=== PATIENT | female | born 1940 | race Caucasian/White ===

== ENCOUNTER 2022-03-28 01:13 | Inpatient (IN) ==
[2022-03-28] MEDS ORDERED: Naloxone 0.4 MG/ML INJ IVP PRN (08:59)
[2022-03-28] MEDS ORDERED: Artificial Tears SOLN 15 ML BOTTLE BOTH EYES PRN ×2 (08:59→09:41)
[2022-03-28 09:35] LABS: ABG Base Excess -19 mEq/L (-2 to 3); ABG HCO3 10 mEq/L (21-27); ABG Oxygen Saturation 100 % (95-98); ABG PCO2 34 mmHg (35-45); ABG PH 7.06 pH Units (7.32-7.45); ABG PO2 456 mmHg (85-104); ABG TCO2 11 mEq/L (20-26); Blood Gas Modality ASSIST CONTROL; Blood Gas VT 480 cc
[2022-03-28 09:47] LABS: Red Blood Count 2.37 M/mcL (3.82-4.97); Red Cell Distribution Width 19.1 % (11.5-14.5)
[2022-03-28 09:48] LABS: Mean Corpuscular HGB Conc 27.5 g/dL (31.6-35.5); Mean Corpuscular Hemoglobin 23.2 pg (28.0-33.3); Mean Corpuscular Volume 84.4 fL (83.0-100.0); Mean Platelet Volume 9.8 fL (9.4-12.4); Nucleated Red Blood Cells 7.2 /100 WBC (0); Platelet Count 337 K/mcL (140-400); White Blood Count 27.2 K/mcL (4.3-11.1)
[2022-03-28 09:51] LABS: Hemoglobin 5.5 g/dL (11.5-15.4)
[2022-03-28] MEDS: Sodium Bicarbonate 150 MEQ in D5% in Water 1,000 ML IVC SCH ×2 (09:55→16:58)
[2022-03-28 09:57] LABS: Prothrombin Time 55.2 Seconds (9.4-12.1)
[2022-03-28 10:06] LABS: Anisocytosis 2+ (Not Present); Hypochromasia Present (Not Present); Poikilocytosis 2+ (Not Present); Polychromasia 1+ (Not Present)
[2022-03-28 10:07] LABS: Acanthocytes 1+ (Not Present); Platelet Estimate Normal (Normal)
[2022-03-28] MEDS ORDERED: HUM PROTHROMBIN CPLX IVPB ONE (10:15)
[2022-03-28] MEDS ORDERED: [UNRECOGNIZED DRUG - OTHER] IVPB ONE (10:15)
[2022-03-28] MEDS ORDERED: WATER FOR INJ IVPB ONE (10:15)
[2022-03-28] MEDS: Norepinephrine 4 MG/254 ML IV.SOLN IVC SCH ×3 (10:21→19:58)
[2022-03-28 10:30] LABS: Albumin 1.9 g/dL (3.5-5.7); Albumin/Globulin Ratio 1.4 (1.1-2.2); Bilirubin,Direct 0.6 mg/dL (0.0-0.2); Bilirubin,Indirect 0.5 mg/dL (0.0-1.0); Bilirubin,Total 1.1 mg/dL (0.3-1.0); Calcium 7.2 mg/dL (8.6-10.3); Globulin 1.4 g/dL (2.4-3.5); Phosphorous 5.7 mg/dL (2.7-4.5); Potassium 4.6 mEq/L (3.5-5.1); Total Protein 3.3 g/dL (6.4-8.9)
[2022-03-28 10:43] LABS: Neutrophils # 23.9 K/mcL (1.6-8.9)
[2022-03-28 10:44] LABS: Lymphocytes # 1.6 K/mcL (0.6-4.6)
[2022-03-28] MEDS: FentaNYL (PF) 1,000 MCG/100 ML IV.SOLN IVC SCH (11:02)
[2022-03-28] MEDS: Pantoprazole 40 MG VIAL IVP SCH (11:04)
[2022-03-28] MEDS: Chlorhexidine Rinse 15 ML MOUTHWASH MM SCH ×2 (11:04→21:10)
[2022-03-28 11:41] LABS: ABG Base Excess -12 mEq/L (-2 to 3); ABG HCO3 14 mEq/L (21-27); ABG Oxygen Saturation 100 % (95-98); ABG PCO2 34 mmHg (35-45); ABG PH 7.23 pH Units (7.32-7.45); ABG PO2 451 mmHg (85-104); ABG TCO2 15 mEq/L (20-26); Blood Gas Modality ASSIST CONTROL; Blood Gas VT 480 cc
[2022-03-28] MEDS ORDERED: Artificial Tears SOLN 15 ML BOTTLE BOTH EYES SCH (12:00)
[2022-03-28] MEDS: MetroNIDAZOLE 500 MG/100 ML 500 MG/100 ML BAG IVPB SCH ×3 (12:05→23:11)
[2022-03-28] MEDS: Artificial Tears SOLN 15 ML BOTTLE BOTH EYES SCH ×4 (12:05→23:08)
[2022-03-28 12:57] LABS: Hematocrit 24.9 % (35.3-44.9)
[2022-03-28 13:03] LABS: Hemoglobin 7.1 g/dL (11.5-15.4)
[2022-03-28] MEDS ORDERED: 0.9 % Sodium Chloride 250 ML ONE (13:23)
[2022-03-28] MEDS ORDERED: *HR* Dextrose 50 % in Water (Syg) 50 ML SYRINGE IVP PRN (14:15)
[2022-03-28] MEDS ORDERED: Dextrose Gel 15 GM/37.5 ML TUBE PO PRN ×2 (14:15)
[2022-03-28] MEDS ORDERED: D5% in Water 1,000 ML IVC PRN (14:15)
[2022-03-28] MEDS ORDERED: Albumin 25% 25gram/100mL 25 GM/100 ML IV.SOLN IVPB ONE (14:51)
[2022-03-28] MEDS: Vasopressin 40 UNIT in D5% in Water 100 ML IVC SCH (15:10)
[2022-03-28 16:00] LABS: Albumin 2.4 g/dL (3.5-5.7); Albumin/Globulin Ratio 1.3 (1.1-2.2); Bilirubin,Total 1.7 mg/dL (0.3-1.0); Calcium 7.8 mg/dL (8.6-10.3); Globulin 1.9 g/dL (2.4-3.5); Potassium 4.6 mEq/L (3.5-5.1); Total Protein 4.3 g/dL (6.4-8.9)
[2022-03-28] MEDS: Cefepime HCl 2,000 MG in 0.9 % Sodium Chloride 10 ML IVP SCH (16:59)
[2022-03-28] MEDS: Insulin LISPRO 300 UNITS/3 ML VIAL SUBQ SCH ×2 (17:07→23:08)
[2022-03-28 18:06] LABS: Hematocrit 27.9 % (35.3-44.9); Hemoglobin 8.2 g/dL (11.5-15.4)
[2022-03-28 19:03] LABS: INR 2.9; Prothrombin Time 31.7 Seconds (9.4-12.1)
[2022-03-28] MEDS ORDERED: Chlorhexidine Rinse 15 ML MOUTHWASH MM SCH (21:00)
[2022-03-29 01:35] LABS: Hematocrit 28.8 % (35.3-44.9); Hemoglobin 8.4 g/dL (11.5-15.4)
[2022-03-29] MEDS: Sodium Bicarbonate 150 MEQ in D5% in Water 1,000 ML IVC SCH ×3 (01:39→16:26)
[2022-03-29] MEDS: FentaNYL (PF) 1,000 MCG/100 ML IV.SOLN IVC SCH ×4 (01:40→21:34)
[2022-03-29 04:06] LABS: ABG Base Excess -7 mEq/L (-2 to 3); ABG HCO3 19 mEq/L (21-27); ABG Oxygen Saturation 93 % (95-98); ABG PCO2 39 mmHg (35-45); ABG PH 7.29 pH Units (7.32-7.45); ABG PO2 76 mmHg (85-104); ABG TCO2 20 mEq/L (20-26); Blood Gas VT 480 cc
[2022-03-29] MEDS: Artificial Tears SOLN 15 ML BOTTLE BOTH EYES SCH ×6 (05:01→23:24)
[2022-03-29] MEDS: Midazolam HCl 50 MG/50 ML IV.SOLN IVC SCH ×2 (05:01→09:05)
[2022-03-29 05:02] LABS: Hematocrit 26.8 % (35.3-44.9); Hemoglobin 8.2 g/dL (11.5-15.4); Mean Corpuscular HGB Conc 30.6 g/dL (31.6-35.5); Mean Corpuscular Hemoglobin 25.1 pg (28.0-33.3); Mean Platelet Volume 10.2 fL (9.4-12.4); Nucleated Red Blood Cells 5.1 /100 WBC (0); Platelet Count 350 K/mcL (140-400); Red Blood Count 3.27 M/mcL (3.82-4.97); Red Cell Distribution Width 19.3 % (11.5-14.5)
[2022-03-29 05:15] LABS: White Blood Count 31.7 K/mcL (4.3-11.1)
[2022-03-29] MEDS ORDERED: *HR* Heparin 5,000 UNIT/ML VIAL IVP ONE (05:34)
[2022-03-29] MEDS ORDERED: *HR* Heparin 5,000 UNIT/ML VIAL IVP PRN ×2 (05:34)
[2022-03-29] MEDS: Norepinephrine 4 MG/254 ML IV.SOLN IVC SCH (05:34)
[2022-03-29] MEDS: Cefepime HCl 2,000 MG in 0.9 % Sodium Chloride 10 ML IVP SCH (05:35)
[2022-03-29] MEDS: MetroNIDAZOLE 500 MG/100 ML 500 MG/100 ML BAG IVPB SCH ×4 (05:36→23:21)
[2022-03-29] MEDS: Insulin LISPRO 300 UNITS/3 ML VIAL SUBQ SCH ×4 (05:37→23:23)
[2022-03-29 05:43] LABS: Acanthocytes 1+ (Not Present); Anisocytosis 2+ (Not Present); Microcytosis Present (Not Present); Platelet Estimate Normal (Normal); Toxic Granulation Present (Not Present)
[2022-03-29 05:44] LABS: Lymphocytes # 2.5 K/mcL (0.6-4.6); Monocytes # 1.3 K/mcL (0.0-1.3); Neutrophils # 27.9 K/mcL (1.6-8.9); Poikilocytosis 1+ (Not Present)
[2022-03-29] MEDS ORDERED: Heparin 25,000UNIT/250ML 1/2NS 25,000 UNIT/250 ML IV.SOLN IVC SCH ×2 (05:45→06:00)
[2022-03-29 05:58] LABS: Alanine Aminotransferase 1408 Units/L (7-52); Albumin 2.6 g/dL (3.5-5.7); Albumin/Globulin Ratio 1.7 (1.1-2.2); Alkaline Phosphatase 130 Units/L (34-104); Aspartate Amino Transferase > 3000 Units/L (13-39); BUN/Creatinine Ratio 27 (6-26); Bilirubin,Total 2.3 mg/dL (0.3-1.0); Blood Urea Nitrogen 44 mg/dL (8-23); Calcium 7.7 mg/dL (8.6-10.3); Carbon Dioxide 18 mEq/L (23-29); Chloride 100 mEq/L (98-107); Globulin 1.5 g/dL (2.4-3.5); Glucose 395 mg/dL (70-105); Osmolality,Calculated 318 (280-300); Potassium 3.8 mEq/L (3.5-5.1); Sodium 140 mEq/L (136-145); Total Protein 4.1 g/dL (6.4-8.9)
[2022-03-29 06:27] LABS: Heparin anti-factor XA UFH 0.71 IU/mL (0.30-0.70)
[2022-03-29 06:28] LABS: INR 4.3
[2022-03-29 06:30] LABS: Activated Partial Thrombo Time 36.7 Seconds (26.0-36.0)
[2022-03-29 06:32] LABS: Prothrombin Time 47.3 Seconds (9.4-12.1)
[2022-03-29 06:57] LABS: Troponin I 6.88 ng/mL (< 0.04)
[2022-03-29] MEDS ORDERED: D5 IVC ONE ×3 (08:01→13:00)
[2022-03-29] MEDS ORDERED: ACETYLCYSTEINE IVC ONE ×3 (08:01→13:00)
[2022-03-29] MEDS ORDERED: WATER IVC ONE ×3 (08:01→13:00)
[2022-03-29 08:47] LABS: Magnesium 1.9 mg/dL (1.6-2.6); Phosphorous 4.4 mg/dL (2.7-4.5)
[2022-03-29] MEDS: Pantoprazole 40 MG VIAL IVP SCH (08:59)
[2022-03-29] MEDS: Chlorhexidine Rinse 15 ML MOUTHWASH MM SCH ×2 (08:59→21:34)
[2022-03-29] MEDS: Hydrocortisone Sodium Succ 100 MG/2 ML VIAL IVP SCH ×3 (09:04→23:21)
[2022-03-29] MEDS ORDERED: D10% in Water 500 ML IVC PRN (10:07)
[2022-03-29] MEDS: Vasopressin 40 UNIT in D5% in Water 100 ML IVC SCH (10:32)
[2022-03-29] MEDS ORDERED: Albuterol 2.5 MG/3 ML NEBULIZER IH PRN (10:43)
[2022-03-29] MEDS ORDERED: Amiodarone Premix 150 MG/100 ML BAG IVPB ONE (12:59)
[2022-03-29] MEDS ORDERED: Amiodarone 450 MG in 0.9 % Sodium Chloride Excel Bg 241 ML IVC ONE (13:04)
[2022-03-29 13:17] LABS: Hematocrit 26.2 % (35.3-44.9)
[2022-03-29 13:19] LABS: Hemoglobin 7.9 g/dL (11.5-15.4); Mean Corpuscular HGB Conc 30.2 g/dL (31.6-35.5); Mean Corpuscular Hemoglobin 24.5 pg (28.0-33.3); Mean Corpuscular Volume 81.1 fL (83.0-100.0); Nucleated Red Blood Cells 6.9 /100 WBC (0); Platelet Count 279 K/mcL (140-400); Red Blood Count 3.23 M/mcL (3.82-4.97); Red Cell Distribution Width 19.6 % (11.5-14.5)
[2022-03-29] MEDS ORDERED: Amiodarone Premix 360 MG/200 ML BAG IVC ONE (13:19)
[2022-03-29 13:22] LABS: White Blood Count 34.2 K/mcL (4.3-11.1)
[2022-03-29 13:35] LABS: Anisocytosis 1+ (Not Present); Lymphocytes # 1.4 K/mcL (0.6-4.6); Monocytes # 0.7 K/mcL (0.0-1.3); Neutrophils # 32.2 K/mcL (1.6-8.9); Pappenheimer Bodies 1+ (Not Present); Platelet Estimate Normal (Normal)
[2022-03-29 13:36] LABS: Polychromasia 1+ (Not Present)
[2022-03-29 13:52] LABS: Alanine Aminotransferase 1350 Units/L (7-52); Albumin 2.2 g/dL (3.5-5.7); Albumin/Globulin Ratio 1.7 (1.1-2.2); Alkaline Phosphatase 135 Units/L (34-104); Aspartate Amino Transferase > 3000 Units/L (13-39); BUN/Creatinine Ratio 26 (6-26); Bilirubin,Total 2.5 mg/dL (0.3-1.0); Blood Urea Nitrogen 47 mg/dL (8-23); Calcium 7.1 mg/dL (8.6-10.3); Carbon Dioxide 20 mEq/L (23-29); Chloride 95 mEq/L (98-107); Globulin 1.3 g/dL (2.4-3.5); Glucose 486 mg/dL (70-105); Magnesium 1.8 mg/dL (1.6-2.6); Osmolality,Calculated 320 (280-300); Phosphorous 4.1 mg/dL (2.7-4.5); Potassium 3.6 mEq/L (3.5-5.1); Sodium 138 mEq/L (136-145); Total Protein 3.5 g/dL (6.4-8.9)
[2022-03-29] MEDS: Ipratropium/Albuterol Neb 3 ML IH SCH ×2 (15:12→19:52)
[2022-03-29] MEDS ORDERED: Clinimix E 5%-15% SOLUTION 2,000 ML with MVI, adult with vitamin K 10 ML IVC SCH (17:00)
[2022-03-29] MEDS: Cefepime HCl 1,000 MG in 0.9 % Sodium Chloride 10 ML IVP SCH (17:07)
[2022-03-29] MEDS ORDERED: Insulin LISPRO 300 UNITS/3 ML VIAL SUBQ SCH (17:27)
[2022-03-29] MEDS: Amiodarone Premix 360 MG/200 ML BAG IVC SCH (19:38)
[2022-03-29] MEDS ORDERED: Insulin DETEMIR 100 UNIT/ML X5UNITS SUBQ SCH ×2 (21:00→22:45)
[2022-03-30] MEDS: Norepinephrine 4 MG/254 ML IV.SOLN IVC SCH (00:14)
[2022-03-30] MEDS: Sodium Bicarbonate 150 MEQ in D5% in Water 1,000 ML IVC SCH (00:15)
[2022-03-30] MEDS: Phenylephrine 20 MG in 0.9 % Sodium Chloride 250 ML IVC SCH ×2 (01:44→09:21)
[2022-03-30] MEDS: Artificial Tears SOLN 15 ML BOTTLE BOTH EYES SCH ×4 (04:09→16:07)
[2022-03-30] MEDS: FentaNYL (PF) 1,000 MCG/100 ML IV.SOLN IVC SCH ×3 (04:09→14:11)
[2022-03-30] MEDS: Ipratropium/Albuterol Neb 3 ML IH SCH ×3 (04:13→15:58)
[2022-03-30] MEDS ORDERED: Insulin DETEMIR 100 UNIT/ML X5UNITS SUBQ ONE (04:24)
[2022-03-30] MEDS: Insulin LISPRO 300 UNITS/3 ML VIAL SUBQ SCH (04:43)
[2022-03-30 05:02] LABS: Nucleated Red Blood Cells 7.4 /100 WBC (0)
[2022-03-30 05:03] LABS: Hematocrit 26.6 % (35.3-44.9); Hemoglobin 7.3 g/dL (11.5-15.4); Mean Corpuscular HGB Conc 27.4 g/dL (31.6-35.5); Mean Corpuscular Hemoglobin 24.3 pg (28.0-33.3); Mean Corpuscular Volume 88.7 fL (83.0-100.0); Platelet Count 228 K/mcL (140-400); Red Cell Distribution Width 21.4 % (11.5-14.5)
[2022-03-30 05:07] LABS: White Blood Count 38.9 K/mcL (4.3-11.1)
[2022-03-30 05:15] LABS: INR 7.4; Prothrombin Time 81.3 Seconds (9.4-12.1)
[2022-03-30 05:20] LABS: ABG Base Excess -16 mEq/L (-2 to 3); ABG HCO3 12 mEq/L (21-27); ABG Oxygen Saturation 97 % (95-98); ABG PCO2 35 mmHg (35-45); ABG PH 7.14 pH Units (7.32-7.45); ABG PO2 123 mmHg (85-104); ABG TCO2 13 mEq/L (20-26); Blood Gas VT 480 cc
[2022-03-30 05:25] LABS: Albumin 1.9 g/dL (3.5-5.7); Albumin/Globulin Ratio 1.7 (1.1-2.2); Bilirubin,Total 1.9 mg/dL (0.3-1.0); Calcium 6.9 mg/dL (8.6-10.3); Globulin 1.1 g/dL (2.4-3.5); Magnesium 1.9 mg/dL (1.6-2.6); Phosphorous 6.2 mg/dL (2.7-4.5); Potassium 3.7 mEq/L (3.5-5.1)
[2022-03-30] MEDS ORDERED: Insulin Regular, Human 100 UNIT/ML IV ONE (05:25)
[2022-03-30] MEDS ORDERED: Insulin Regular, Human 100 UNIT/ML IV PRN ×2 (05:25)
[2022-03-30 05:34] LABS: Lymphocytes # 0.8 K/mcL (0.6-4.6); Neutrophils # 38.1 K/mcL (1.6-8.9)
[2022-03-30 05:35] LABS: Hypochromasia Present (Not Present); Platelet Estimate Normal (Normal)
[2022-03-30] MEDS: MetroNIDAZOLE 500 MG/100 ML 500 MG/100 ML BAG IVPB SCH ×2 (05:39→11:02)
[2022-03-30] MEDS: Cefepime HCl 1,000 MG in 0.9 % Sodium Chloride 10 ML IVP SCH (05:39)
[2022-03-30] MEDS ORDERED: Sodium Bicarbonate 75 MEQ in 0.45 % Sodium Chloride 1,000 ML IVC SCH (06:00)
[2022-03-30] MEDS ORDERED: Iopamidol - 370 500 ML MLS IVP ONE (07:30)
[2022-03-30] MEDS ORDERED: Sodium Bicarbonate 150 MEQ in 0.45 % Sodium Chloride 1,000 ML IVC SCH (07:33)
[2022-03-30] MEDS: Hydrocortisone Sodium Succ 100 MG/2 ML VIAL IVP SCH (07:58)
[2022-03-30] MEDS: Pantoprazole 40 MG VIAL IVP SCH (07:58)
[2022-03-30] MEDS: Chlorhexidine Rinse 15 ML MOUTHWASH MM SCH (07:58)
[2022-03-30] MEDS: Midazolam HCl 50 MG/50 ML IV.SOLN IVC SCH (07:59)
[2022-03-30] MEDS: Amiodarone Premix 360 MG/200 ML BAG IVC SCH (08:12)
[2022-03-30] MEDS ORDERED: Phenylephrine 100 MG in 0.9 % Sodium Chloride 250 ML IVC SCH (10:00)
[2022-03-30] MEDS ORDERED: 0.9 % Sodium Chloride 250 ML ONE (10:28)
[2022-03-30] MEDS: Vasopressin 40 UNIT in D5% in Water 100 ML IVC SCH (10:44)
[2022-03-30 11:23] LABS: Platelet Count 196 K/mcL (140-400)
[2022-03-30 11:25] LABS: Hematocrit 24.9 % (35.3-44.9); Hemoglobin 6.8 g/dL (11.5-15.4); Lymphocytes # 0.7 K/mcL (0.6-4.6); Mean Corpuscular HGB Conc 27.3 g/dL (31.6-35.5); Mean Corpuscular Hemoglobin 24.7 pg (28.0-33.3); Mean Corpuscular Volume 90.5 fL (83.0-100.0); Mean Platelet Volume 10.4 fL (9.4-12.4); Nucleated Red Blood Cells 8.7 /100 WBC (0); Red Blood Count 2.75 M/mcL (3.82-4.97); Red Cell Distribution Width 21.3 % (11.5-14.5)
[2022-03-30 11:28] LABS: VBG Ionized Calcium 0.78 mmol/L (1.15-1.35)
[2022-03-30 11:37] LABS: INR 6.9; Prothrombin Time 75.3 Seconds (9.4-12.1)
[2022-03-30 11:43] LABS: Magnesium 1.9 mg/dL (1.6-2.6); Phosphorous 7.1 mg/dL (2.7-4.5)
[2022-03-30 11:45] LABS: Calcium 7.1 mg/dL (8.6-10.3); Potassium 3.4 mEq/L (3.5-5.1)
[2022-03-30 11:55] LABS: Monocytes # 0.7 K/mcL (0.0-1.3); Neutrophils # 33.6 K/mcL (1.6-8.9); Platelet Estimate Normal (Normal)
[2022-03-30 11:57] LABS: Acanthocytes 1+ (Not Present); Poikilocytosis 1+ (Not Present); Polychromasia 1+ (Not Present)
[2022-03-30 11:58] LABS: Anisocytosis 1+ (Not Present); Hypochromasia Present (Not Present)
[2022-03-30 12:37] VITALS: O2SAT 95
[2022-03-30 13:30] VITALS: TEMP 96.8
[2022-03-30] MEDS ORDERED: Ondansetron 4 MG/2 ML VIAL IVP PRN (14:14)
[2022-03-30] MEDS ORDERED: Atropine Sulfate 1% 40 DROP/2 ML BOTTLE SL PRN (14:14)
[2022-03-30] MEDS ORDERED: *HR* FentaNYL (PF) 100 MCG/2 ML VIAL IVP PRN (14:16)
[2022-03-30] MEDS ORDERED: *HR* LORazepam 2 MG/ML VIAL IVP PRN (14:31)
[2022-03-30 17:00] VITALS: BP 40/29; PULSE 69
[2022-03-30] MEDS ORDERED: Clinimix 5%-20% SOLUTION 2,000 ML with MVI, adult with vitamin K 10 ML, Sodium Acetat... IVC SCH (17:00)
[2022-03-30] MEDS ORDERED: Clinimix E 5%-15% SOLUTION 2,000 ML with MVI, adult with vitamin K 10 ML IVC SCH (17:00)
== END 2022-03-30 17:35 | disposition expired | DRG 871 ==
LOC: PREOBSVTOIN 06:38 → ICNU 09:10
PROVIDERS: ADMIT Internal Medicine; ATTEND Internal Medicine